=== PATIENT | female | born 1990 | race African-American/Black ===

== ENCOUNTER 2018-08-31 23:38 | Emergency (ER) | payer MEDICAID ==
[~2018-08-31] VITALS: Ht 162.6 cm; Wt 59.0 kg
[2018-09-01] MEDS ORDERED: ONDANSETRON 4MG ODT PO ONE (01:00)
[2018-09-01] MEDS ORDERED: ACETAMINOPHEN 325MG TABLET PO ONE (01:00)
[2018-09-01 02:24] VITALS: BP 132/89
== END 2018-09-01 02:29 | disposition home or self-care (01) ==
LOC: ER 23:38
DX: R51 Headache (principal); M54.5 Low back pain
CPT/HCPCS: 70450; 72100; 81025; 99284; Q0162

== ENCOUNTER 2019-09-24 11:43 | Emergency (ER) | payer MEDICAID ==
[~2019-09-24] VITALS: Ht 162.6 cm; Wt 57.0 kg
[2019-09-24] MEDS ORDERED: ACETAMINOPHEN 325MG TABLET PO ONE (13:00)
[2019-09-24 13:09] LABS: CLARITY URINE CLOUDY (CLEAR); COLOR URINE YELLOW (YELLOW); KETONES URINE 4+ (NEGATIVE); LEUKOCYTE ESTERASE URINE 3+ (NEGATIVE); NITRITE URINE NEGATIVE (NEGATIVE); OCCULT BLOOD URINE 2+ (NEGATIVE); PH URINE 5.5 (4.5-8.0); PROTEIN URINE 1+ (NEGATIVE); SPECIFIC GRAVITY URINE 1.019 (1.005-1.030); UROBILINOGEN URINE 0.2 E.U./dL (0.2-1.0)
[2019-09-24 13:57] VITALS: BP 141/87
== END 2019-09-24 13:59 | disposition home or self-care (01) ==
LOC: ER 11:43
DX: N39.0 Urinary tract infection, site not specified (principal)
CPT/HCPCS: 81003; 81025; 87077; 87186; 99283

== ENCOUNTER 2023-03-22 14:07 | Emergency (ER) | payer MEDICAID, OTHER ==
[~2023-03-22] VITALS: Ht 154.9 cm; Wt 54.0 kg
[2023-03-22 14:21] VITALS: BP 125/85; O2SAT 99
[2023-03-22 15:53] LABS: CLARITY URINE SL HAZY (CLEAR); COLOR URINE YELLOW (YELLOW); PH URINE 6.5 (4.5-8.0); SPECIFIC GRAVITY URINE <1.005 (1.005-1.030)
[2023-03-22 15:54] LABS: GLUCOSE URINE NEGATIVE (NEGATIVE); KETONES URINE NEGATIVE (NEGATIVE); LEUKOCYTE ESTERASE URINE 3+ (NEGATIVE); NITRITE URINE NEGATIVE (NEGATIVE); OCCULT BLOOD URINE 3+ (NEGATIVE); PROTEIN URINE TRACE (NEGATIVE); UROBILINOGEN URINE 0.2 E.U./dL (0.2-1.0)
[2023-03-22 16:04] LABS: SQUAMOUS EPITHELIAL CELL URINE RARE /lpf (RARE/1+)
[2023-03-22 16:05] LABS: WBC URINE 50-100 /hpf (0-2)
[2023-03-22 16:06] LABS: BACTERIA URINE 1+; YEAST URINE NONE SEEN
[2023-03-22] MEDS ORDERED: NITR-87 MT (16:34)
[2023-03-22] MEDS ORDERED: PHEN-910 MT (16:37)
[2023-03-22 17:31] VITALS: PULSE 98; RESP 17; TEMP 99
== END 2023-03-22 17:32 | disposition home or self-care (01) ==
LOC: ER 14:16
DX: N39.0 Urinary tract infection, site not specified (principal); Z91.010 Allergy to peanuts
CPT/HCPCS: 81003; 81025; 87077; 87186; 99283

== ENCOUNTER 2024-06-19 11:37 | Emergency (ER) | payer OTHER ==
[~2024-06-19] VITALS: Ht 160 cm; Wt 52.1 kg
[~2024-06-19 11:37] MED LIST: NITR-87 MT; PHEN-910 MT
[2024-06-19 11:52] VITALS: O2SAT 99
[2024-06-19 15:27] LABS: CLARITY URINE CLOUDY (CLEAR); COLOR URINE ORANGE (YELLOW); GLUCOSE URINE NEGATIVE (NEGATIVE); KETONES URINE 1+ (NEGATIVE); LEUKOCYTE ESTERASE URINE 3+ (NEGATIVE); NITRITE URINE NEGATIVE (NEGATIVE); OCCULT BLOOD URINE NEGATIVE (NEGATIVE); PROTEIN URINE NEGATIVE (NEGATIVE); SPECIFIC GRAVITY URINE 1.008 (1.005-1.030); UROBILINOGEN URINE 0.2 E.U./dL (0.2-1.0)
[2024-06-19 15:52] LABS: *AMPHETAMINES SCREEN URINE NEGATIVE (NEGATIVE); *BARBITURATES SCREEN URINE NEGATIVE (NEGATIVE); *BENZODIAZEPINES SCREEN URINE NEGATIVE (NEGATIVE); *COCAINE SCREEN URINE NEGATIVE (NEGATIVE); METHADONE URINE SCREEN NEGATIVE (NEGATIVE)
[2024-06-19 15:53] LABS: CANNABINOID URINE SCREEN NEGATIVE (NEGATIVE); ECSTASY MDMA SCREEN URINE NEGATIVE (NEGATIVE); OPIATES URINE SCREEN NEGATIVE (NEGATIVE); PHENCYCLIDINE URINE SCREEN NEGATIVE (NEGATIVE)
[2024-06-19 15:58] LABS: BASOPHILS % 0.6 % (0.0-2.0); EOSINOPHILS % 0.6 % (0.0-5.0); HEMOGLOBIN. 10.9 g/dL (12.0-16.0); LYMPHOCYTES % 20.1 % (20.0-50.0); MEAN CORPUSCULAR HEMOGLOBIN 37.8 pg (28.0-32.0); MEAN CORPUSCULAR HGB CONC 34.1 g/dL (31.0-37.0); MEAN CORPUSCULAR VOLUME 110.8 fL (81.0-99.0); MEAN PLATELET VOLUME 6.6 fl (7.4-10.4); MONOCYTES % 6.4 % (2.0-8.0); NEUTROPHILS % 72.3 % (40.0-76.0); PLATELET 158 x1000/uL (130-400); RED BLOOD CELL COUNT 2.89 mill/uL (4.2-5.4); WHITE BLOOD COUNT 5.7 x1000/uL (4.5-11.0)
[2024-06-19 15:59] LABS: ADD RBC MORPHOLOGY YES; DIFFERENTIAL COMMENT 1
[2024-06-19 16:02] LABS: BACTERIA URINE 4+; SQUAMOUS EPITHELIAL CELL URINE 3+ /lpf (RARE/1+); TRICHOMONAS URINE 1+; YEAST URINE NONE SEEN
[2024-06-19 16:05] LABS: CHLORIDE 101 mEq/L (98-107); POTASSIUM 3.6 mEq/L (3.5-5.1)
[2024-06-19 16:06] LABS: CARBON DIOXIDE 25 mEq/L (21-32); SODIUM 139 mEq/L (136-145)
[2024-06-19 16:07] LABS: CALCIUM 9.3 mg/dL (8.7-10.4); PROTHROMBIN TIME 10.9 sec (9.6-11.0)
[2024-06-19 16:11] LABS: CREATININE 0.6 mg/dL (0.6-1.0); GLUCOSE 87 mg/dL (70-105)
[2024-06-19 16:12] LABS: UREA NITROGEN BLOOD < 5 mg/dL (9-23)
[2024-06-19 16:13] LABS: ALANINE AMINOTRANSFERASE 30 IU/L (10-49); ALBUMIN 4.4 g/dL (3.2-4.8); ASPARTATE AMINOTRANSFERASE 69 IU/L (<34)
[2024-06-19 16:14] LABS: BILIRUBIN DIRECT 0.2 mg/dL (<=3.0); BILIRUBIN TOTAL 0.5 mg/dL (0.1-1.0); PLATELET ESTIMATE NORMAL; PROTEIN TOTAL 7.7 g/dL (6.0-8.3)
[2024-06-19 16:15] LABS: T4 FREE 0.91 ng/dL (0.89-1.76)
[2024-06-19 16:16] LABS: THYROID STIMULATING HORMONE 1.25 uIU/mL (0.55-4.78)
[2024-06-19] MEDS ORDERED: METR-167 MT (17:14)
[2024-06-19] MEDS ORDERED: DOXY100T28 MT (17:14)
[2024-06-19] MEDS ORDERED: MECL-299 MT (17:14)
[2024-06-19 18:28] VITALS: BP 122/88; PULSE 118; RESP 16; TEMP 36.9; O2SAT 100
[2024-06-19] MEDS: LIDOCAINE HCL/PF 1% 10 MG/ML 5ML VIAL INFIL ONE (18:31)
[2024-06-19] MEDS: CEFTRIAXONE SODIUM 1G VIAL IM ONE (18:31)
== END 2024-06-19 19:11 | disposition home or self-care (01) ==
LOC: ER 11:37
DX: S40.021A Contusion of right upper arm, initial encounter (principal); A59.9 Trichomoniasis, unspecified; N39.0 Urinary tract infection, site not specified; D53.9 Nutritional anemia, unspecified; F10.10 Alcohol abuse, uncomplicated; F41.9 Anxiety disorder, unspecified; Z79.899 Other long term (current) drug therapy; Z91.010 Allergy to peanuts; Y90.9 Presence of alcohol in blood, level not specified
CPT/HCPCS: 99283; 80076; 80305; 80048; 81003; 81025; 84439; 83690; 84443; 85025; 85610; 87086; 87186; 87077; 36415; 96372; J0696; J2003

== ENCOUNTER 2024-11-16 17:01 | Emergency (ER) | payer OTHER ==
[~2024-11-16] VITALS: Ht 162.6 cm; Wt 55.0 kg
[~2024-11-16 17:01] MED LIST changes: +DOXY100T28 MT; +MECL-299 MT; +METR-167 MT
[2024-11-16 17:07] VITALS: RESP 14; O2SAT 95
[2024-11-16] MEDS ORDERED: IBUPROFEN 600MG TABLET PO ONE (17:30)
[2024-11-16] MEDS ORDERED: IBUP-2029 MT (18:06)
[2024-11-16] MEDS: IBUPROFEN 600MG TABLET PO SCH (19:53)
[2024-11-16 21:41] VITALS: BP 102/67; PULSE 91; TEMP 36.8; O2SAT 98
== END 2024-11-16 21:42 | disposition home or self-care (01) ==
LOC: ER 17:01
DX: S93.402A Sprain of unspecified ligament of left ankle, initial encounter (principal); F41.9 Anxiety disorder, unspecified; F10.90 Alcohol use, unspecified, uncomplicated; Z79.899 Other long term (current) drug therapy; Z91.010 Allergy to peanuts; W19.XXXA Unspecified fall, initial encounter; Y93.89 Activity, other specified; Y92.89 Other specified places as the place of occurrence of the external cause; Y99.8 Other external cause status; Y90.9 Presence of alcohol in blood, level not specified
CPT/HCPCS: 73610; 99283; A6449; Z7610